=== PATIENT | male | born 1975 | race Caucasian/White ===

== ENCOUNTER 2019-04-25 11:02 | Emergency (ER) | payer OTHER, SELFPAY ==
[2019-04-25 11:05] VITALS: BP 127/78; PULSE 113; RESP 18; TEMP 36.9; O2SAT 96
--- NOTE | 2019-04-25 11:54 | DI.RAD_ITS ---
EXAM: XR HAND RT COMPLETE INDICATION: fall, injury. COMPARISON: XR WRIST RT COMPLETE from 04/25/2019 XR ELBOW RT COMPLETE from 04/25/2019 XR FOREARM RT from 04/25/2019 TECHNIQUE: 2D digital imaging was performed. FINDINGS: Views of the right hand the right wrist forearm and the elbow are interpreted in conjunction. Three views of the hand were obtained and show no evidence of fracture. Three views of the wrist were obtained and show no evidence of fracture. Two views of the forearm were obtained and show no evidence of fracture Three views of the elbow were obtained. No evidence of fracture. No elbow joint effusion or hemarth rosis. IMPRESSION:
--- NOTE | 2019-04-25 16:22 | ED.GENADUL_ITS ---
Discharge Plan Disposition Patient Disposition: HOME Condition: Good Discharge Details Chief Complaint: Orthopedic Clinical Impression: Elbow contusion, Sprain Primary Care Provider: Milan Coelho ED Provider: Steph Jackson Home Meds and New Rx's Prescriptions: No Action multivitamin Tablet 1 tab PO DIRECTED RF: 0 vitamin B complex Tablet 1 tab PO DAILY RF: 0 cholecalciferol (vitamin D3) [Vitamin D3] 400 unit Capsule 400 unit PO DAILY RF: 0 Discharge Instructions Instructions: Contusion in Adults (ED) Additional Instructions: Rest. Activities as tolerated. Elevate injury to prevent swelling. Ice to the area of discomfort for 15 min. 3-5 times daily. Motrin every 8 hours with food or Tylenol every 6 hours for soreness if needed over the counter for comfort. Followup with orthopedic doctor as discussed if not improving in one week. Return for any worsening or concerns sooner if needed. Referrals: Andi Go MD [ [facility] STAFF PHYSICIAN] - Medical Decision Making 43-year-old man who at work fell on the back of a tractor trailer truck landing on his right arm. Patient ultimately has x-rays unremarkable for any acute bony fracture. Patient likely has soft tissue injuries without any evidence of complication such as his head chest or abdominal trauma. Patient ambulating without difficulty. Patient consents to a wrist splint and sling. Conservative treatments discussed. Encouraged observation for any alarming symptoms. The patient was stable and requested discharge. Prior to discharge, my usual and customary return precautions were reviewed with the patient - this included foll ow-up instructions and reasons to return to the Emergency Department if conditions worsens, does not improve as expected, or other new concerns arise. Orthopedic follow-up recommended if not improving as expected HPI General Date/Time Provider Initiated Documentation: 04/25/19 11:42 . HPI Narrative: Patient presents for a fall out of the back of a tractor trailer truck onto his right side. Denies striking head. Denies loss of consciousness, headache, dizziness neck or back pain. Patient reports only elbow, forearm, wrist and hand pain on the right in addition to right leg abrasion. Patient ambulating without difficulty. No concern to lower leg fracture. Patient is only co ncerned with the right arm complaints. No obvious deformity. Mild swelling at the wrist. Denies numbness, tingling or weakness of arms or legs. Injury occurred yesterday at work. Related Data Home Medications Medication Instructions Recorded Confirmed cholecalciferol (vitamin D3) 400 unit PO DAILY 04/25/19 04/25/19 [Vitamin D3] multivitamin 1 tab PO DIRECTED 04/25/19 04/25/19 vitamin B complex 1 tab PO DAILY 04/25/19 04/25/19 Allergies Allergy/AdvReac Type Severity Reaction Status Date / Time Fleas Allergy Intermediate Local Uncoded 04/25/19 11:11 reaction General Stated Complaint: Orthopedic PAMELA: 4 Review of Systems Review of Systems ROS Unobtainable: All systems reviewed & are unremarkable except as noted in HPI and below Constitutional Constitutional: Denies headache(s) and Denies weakness Eyes Eyes: Denies blurry vision and Denies photophobia ENT Ears, Nose, Mouth, and Throat: Denies headache(s) and Denies neck pain Musculoskeletal Musculoskeletal: Denies abnormal gait, Denies back pain, Denies deformity, Denies neck pain and Denies numbness Neurologic Neurologic: Denies abnormal gait, Denies headache(s), Denies numbness and Denies weakness [facility] Social History Smoking/Tobacco Use Status: Current every day Alcohol Intake: former Drug use: Current Sobriety Do you feel safe at home: Yes Do you feel safe in your relationship?: Yes Exam Narrative Exam Narrative: CONST: Healthy appearing patient, in no acute distress. Well hydrated. Alert and alert. HENMT: Head nomocephalic, normal to inspection. Atraumatic. Hearing grossly normal. EYES: General normal appearance. Alignment normal. Eyelids normal. Conjunctiva normal. NECK: Normal visual inspection. FROM. Trachea midline. No Midline tenderness. CHEST: Normal insepection of the chest. RESP: Normal respiratory effort. Speaking full sentences. No cough. No audible wheezing. No retractions. CARDIO: No JVD. No rubs or murmur Back; no cervical, thoracic or lumbar spine tenderness. MUSCULOSKELETAL: Normal Gait. FROM of all extremities. No shoulder pain with palpation, humeral pain with palpation. Mild medial epicondyle tenderness with palpation. Supination pronation intact at the elbow. Flexion extension intact to the elbow. Mild forearm tenderness with palpation. Minimal wrist tenderness with palpation. Flexion extension intact of the wrist. Mild dorsal hand and palmar hand pain with palpation. No significant swelling. Distal neurovascularly intact. Director Of Coding strength intact. Pulses intact. SKIN: Normal. Dry. No rashes. NEURO: Alert and awake. Speech clear. PSYCH: Normal affect. Cooperative. Course Vital Signs Vital signs: Vital Signs Temperature 36.9 C 04/25/19 11:05 Pulse 113 H 04/25/19 11:05 Respiratory Rate 18 04/25/19 11:05 Blood Pressure 127/78 04/25/19 11:05 Pulse Oximetry 96 04/25/19 11:05 Temperature 36.9 C 04/25/19 11:05 Temperature Source Skin 04/25/19 11:05 Pulse 113 H 04/25/19 11:05 Respiratory Rate 18 04/25/19 11:05 Respiratory Effort 04/25/19 11:12 Blood Pressure 127/78 04/25/19 11:05 Blood Pressure Position Sitting 04/25/19 11:05 Pulse Oximetry 96 04/25/19 11:05 Oxygen Delivery Method Room Air 04/25/19 11:05 Oxygen Flow Rate 0 04/25/19 11:05 Pain Level 9 04/25/19 11:05 Comment 04/25/19 11:05
== END 2019-04-25 15:00 | disposition home or self-care (01) ==
PROVIDERS: Emergency Provider Physician Assistant; PCP Family Medicine
DX: S50.01XA Contusion of right elbow, initial encounter (principal); W17.89XA Other fall from one level to another, initial encounter; Y99.0 Civilian activity done for income or pay
CPT/HCPCS: 99284; 73080; 73090; 73110; 73130; L3650; L3908

== ENCOUNTER 2019-07-18 17:56 | Emergency (ER) | payer OTHER, SELFPAY ==
[2019-07-18 18:00] VITALS: BP 137/83; PULSE 98; RESP 14; TEMP 36.3; O2SAT 98
--- NOTE | 2019-07-18 18:15 | W.ED.GENAD ---
Discharge Plan Disposition Patient Disposition: HOME Condition: Stable Discharge Details Chief Complaint: HeadInjury Clinical Impression: Eye laceration Primary Care Provider: Milan Coelho ED Provider: Andi Mooney Home Meds and New Rx's Prescriptions: Continued multivitamin Tablet 1 tab PO DIRECTED RF: 0 vitamin B complex Tablet 1 tab PO DAILY RF: 0 cholecalciferol (vitamin D3) [Vitamin D3] 400 unit Capsule 400 unit PO DAILY RF: 0 Discharge Instructions Instructions: Laceration (ED) Additional Instructions: No straining or lifting heavy objects. May use Tylenol 650 mg every 4 hours if needed for pain. Nothing to eat or drink after midnight until seen by the documentation manager at 8am. Wear the eye guard until seen by ophthalmology tomorrow. I discussed your case with Dr. Pierre of [facility] ophthalmology department. They will see you at 8 AM in clinic on [address] of the [facility] in [facility]. The [facility] main number [phone]. Call if you are delayed in arrival. Stand Alone Forms: Work Release Medical Decision Making 43-year-old male who drank coffee, coughed and sputtered and went out the front door of his trailer, landing on his face on the snow-covered deck. He did not strike a corner or other object. He complains of right eye bleeding. No significant discomfort. Denies loss of consciousness., Denies chest pain, syncope, shortness of breath. States his tetanus is unknown, checked in the records and out of date. He arrives with normal vital signs. On exam his visual acuity is intact bilaterally. Most consistent with a mechanical trip and fall during a coughing fit, however screening EKG, laboratories obtained. Patient referred for CT scan of the head, cervical spine, facial bones. EKG with normal sinus rhythm, rate of 93, QRS is narrow, there is no ST segment elevation present. Per radiology: CT of the head reveals no acute intracranial abnormality, CT maxillofacial reveals right supraorbital laceration without foreign body, no bone fracture. CT cervical spine without fracture or dislocation. Laboratories: White count 8.8, hematocrit 48, platelets 148, sodium 142, potassium 4.0, chloride 104, bicarb 25, BUN 18, creatinine 0.9. I discussed the case with Lisa Pierre MD of [facility] ophthalmology. She will see the patient in clinic tomorrow. We are to administer a dose of IV Ancef, the patient's tetanus has been updated, the images have been referred. They will see the patient at 8 AM in ophthalmology clinic on [address]. He is to be n.p.o. after midnight. HPI General Mode of arrival: ambulatory. Date/Time Provider Initiated Documentation: 07/18/19 17:58. Limitations to Documentation: no limitations. Information obtained by: patient and family. History of Present Illness 43 year old M presents to the emergency department with the chief complaint of Fall and right face trauma, Quality is described as dull, and is localized to the face, eyes and right. Patient reports no radiation. Patient started experiencing this minute(s) and it has been constant. No relieving factors improve symptom(s), No exacerbating factors reported . Patient notes denies chest pain, fever/chills, seizure, shortness of breath and syncope. Patient did receive the following treatments prior to arrival, none Related Data Home Medications Medication Instructions Recorded Confirmed cholecalciferol (vitamin D3) 400 unit PO DAILY 04/25/19 07/18/19 [Vitamin D3] multivitamin 1 tab PO DIRECTED 04/25/19 07/18/19 vitamin B complex 1 tab PO DAILY 04/25/19 07/18/19 Allergies Allergy/AdvReac Type Severity Reaction Status Date / Time Fleas Allergy Intermediate Local Uncoded 07/18/19 18:03 reaction General Stated Complaint: HeadInjury PAMELA: 3 Review of Systems Narrative: Tetanus out of date. Denies other injury. Small abrasion to bridge of nose. [facility] Social History Smoking/Tobacco Use Status: Current every day Alcohol Intake: former Drug use: Current Sobriety Substance use type: does not use Do you feel safe at home: Yes Do you feel safe in your relationship?: Yes Exam Narrative Exam Narrative: GEN: awake, alert, oriented 3. Pleasant, well groomed, interactive. HEAD: Normocephalic, atraumatic ENT: Mucous membranes moist, oropharynx unremarkable, External ear exam unremarkable. TMs clear bilaterally with cerumen. There is no midface instability or anesthesia. There is a small abrasion to the bridge of the nose but no nasal bridge tenderness. EYES: PERRL, EOMI, visual lorenzana intact in 4 quadrants each eye. Visual acuity measured 20/100 OS/OD/OU. There is a right eye injury: A nasal aspect inferior oblique oriented scleral laceration measuring approximate 9-10 mm. Under fluorescein exam there is no Payam sign. Outside the axis of vision. Claudio-Pen nonfunctional. The laceration is there is sub-conjunctival hemorrhage. The pupils round and reactive, do not appreciate hyphema. The orbits are nontender. NECK: Full ROM, no ADRIANA, no menigismus CHEST/RESP: Nontender, clear to auscultation bilateral, no wheeze/rhonchi/rales CARDIOVASCULAR: RRR, no murmur, rub farooq. 2+ Rad pulse bilateral ABDOMEN: Soft, nontender, no mass. +Bowel sounds EXT: Full ROM, no edema, no rash Neuro: Grossly normal neurologic exam, conversant, interactive. Psych: Speech fluent, thoughts congruent, affect normal Course Vital Signs Vital signs: Vital Signs Temperature 36.3 C L 07/18/19 18:00 Pulse 98 H 07/18/19 18:00 Respiratory Rate 14 07/18/19 18:00 Blood Pressure 137/83 07/18/19 18:00 Pulse Oximetry 98 07/18/19 18:00 Temperature 36.3 C L 07/18/19 18:00 Temperature Source Temporal Artery Scan 07/18/19 18:00 Pulse 98 H 07/18/19 18:00 Respiratory Rate 14 07/18/19 18:00 Respiratory Effort Non-Labored 07/18/19 18:02 Blood Pressure 137/83 07/18/19 18:00 Blood Pressure Position Sitting 07/18/19 18:00 Pulse Oximetry 98 07/18/19 18:00 Oxygen Delivery Method Room Air 07/18/19 18:00 Oxygen Flow Rate 0 07/18/19 18:00 Pain Level 0 07/18/19 18:00
--- NOTE | 2019-07-18 18:24 | DI.CT_ITS ---
EXAM: CT HEAD CERV SPINE FACIAL WO CLINICAL HISTORY: Fall, R eye injury TECHNIQUE: The exam was performed according to the usual protocol without contrast. COMPARISON: No exams were available for comparison FINDINGS: CT examination of the maxillofacial region was performed utilizing multi slice acquisition and multip lanar reconstruction. Paranasal sinuses are well aerated. Orbital contents appear intact. No facia l fracture identified. CT examination of the cervical spine was performed utilizing multi slice acquisition and multiplanar reconstruction. Tracheolaryngeal structures appear intact. Lung apices are clear. No gross cervica l disc herniation by CT criteria. No cervical mass or adenopathy. There are degenerative changes of the cervical spine, most prominent at C6-C7 where there is marked d isc space loss of height, prominent endplate hypertrophic changes, and bridging osteophytes anteriorl y. There is no evidence of acute fracture. There is no evidence of facet dislocation. Noncontrast cranial CT was performed. Ventricular system is normal in appearance. No evidence of ac dwain intracranial hemorrhage, mass effect or midline shift. Temporal bone structures and mastoid air cells appear clear. No calvarial fracture. IMPRESSION: No evidence of acute maxillofacial fracture. No evidence of acute cervical spine injury. No evidence of acute intracranial injury.
[2019-07-18] MEDS: Erythromycin Ophth Oint 3.5 GM TUBE OP (18:37)
[2019-07-18] MEDS: Fluorescein STRIPS 100/BOX 1 MG OP (18:37)
[2019-07-18] MEDS: Balanced Salt Solution 15 ML BTL OP (18:37)
--- NOTE | 2019-07-18 18:57 | DI.VRAD_ITS ---
PROCEDURE INFORMATION: Exam: CT Head Without Contrast Exam date and time: 07/18/2019 6:14 PM Age: 43 years old Clinical indication: Injury or trauma; Initial encounter; Blunt trauma (contusions or hematomas); Orbit/periorbital; Right; Patient HX: Fall, R eye injury TECHNIQUE: Imaging protocol: Computed tomography of the head without contrast. COMPARISON: No relevant prior studies available. FINDINGS: Brain: Normal. No hemorrhage. Unremarkable white matter. No mass effect. Ventricles: Normal. No ventriculomegaly. Bones/joints: Unremarkable. No acute fracture. Sinuses: Visualized sinuses are unremarkable. No fluid levels. Mastoid air cells: Visualized mastoid air cells are well aerated. Soft tissues: Unremarkable. IMPRESSION: No acute intracranial abnormality. Soft PROCEDURE INFORMATION: Exam: CT Maxillofacial Without Contrast Exam date and time: 07/18/2019 6:14 PM Age: 43 years old Clinical indication: Injury or trauma; Initial encounter; Blunt trauma (contusions or hematomas); Orbit/periorbital; Right; Patient HX: Fall, R eye injury TECHNIQUE: Imaging protocol: Computed tomography images of the face without contrast. COMPARISON: No relevant prior studies available. FINDINGS: Orbits: Intraorbital contents are unremarkable. Sinuses: Paranasal sinuses are uniformly clear. Bones/joints: No facial bone fracture. Soft tissues: Small laceration in the right periorbital soft tissues. No foreign body visible. IMPRESSION: 1. Right supraorbital small laceration without foreign body. 2. No facial bone fracture. PROCEDURE INFORMATION: Exam: CT Cervical Spine Without Contrast Exam date and time: 07/18/2019 6:14 PM Age: 43 years old Clinical indication: Injury or trauma; Initial encounter; Blunt trauma (contusions or hematomas); Orbit/periorbital; Right; Patient HX: Fall, R eye injury TECHNIQUE: Imaging protocol: Computed tomography images of the cervical spine without contrast. COMPARISON: No relevant prior studies available. FINDINGS: Vertebrae: No suspicious focal bony lesions. No fractures. No posttraumatic malalignment. Discs/Spinal canal/Neural foramina: Severe degenerative disc disease at C6-C7. Soft tissues: Unremarkable. Lungs: Lung apices are normal. IMPRESSION: 1. No cervical spine fracture or dislocation. 2. Degenerative disc disease severe in nature C6-C7. Dictated and Authenticated by: Harpal Delacruz MD. Ordering:EMMANUEL Escamilla MD
[2019-07-18 19:00] LABS: Abs Immature Grans 0.04 k/cumm (0.0-0.09); Absolute Basophil Count 0.03 k/cumm (0.0-0.2); Absolute Eosinophil Count 0.14 k/cumm (0.0-0.7); Absolute Monocyte Count 0.73 k/cumm (0.11-0.7); Absolute Neutrophil Count 4.71 k/cumm (1.2-6.7); Basophils % 0.3; Eosinophils % 1.6; HGB 17.1 g/dL (13.5-17.5); Immature Grans % 0.5; Lymphocytes % 36.2; Mean Corp. HGB Concentration 35.6 g/dL (32.0-36.0); Mean Corpuscular Hemoglobin 33.6 pg (27.0-33.0); Mean Corpuscular Volume 94.3 fL (80-95); Mean Platelet Volume 9.9 fL (8.0-11.0); Monocytes % 8.2; Neutrophils % 53.2; Platelet Count 148 x1000/uL (130-400); RBC 5.09 m/cumm (4.50-6.00); RBC Distribution Width 12.6 % (11.8-14.1); White Blood Cell Count 8.85 k/cumm (4.4-10.8)
[2019-07-18 19:14] LABS: Albumin 3.7 g/dL (3.4-5.0); Alkaline Phosphatase 84 U/L (46-116); BUN 18 mg/dL (7-18); Bilirubin, Total 0.3 mg/dL (0.2-1.0); CREATININE 0.98 mg/dL (0.70-1.30); Calcium 8.4 mg/dL (8.5-10.1); Chloride 104 mmol/L (98-107); Glucose 127 mg/dL (74-106); Sodium 142 mmol/L (136-145)
[2019-07-18 20:21] VITALS: BP 130/82; PULSE 80; RESP 14; TEMP 37; O2SAT 97
[2019-07-18 20:38] LABS: ALT 41 U/L (16-63); AST 25 U/L (15-37)
== END 2019-07-18 20:05 | disposition home or self-care (01) ==
PROVIDERS: Emergency Provider Emergency Medicine; PCP Family Medicine
DX: S01.81XA Laceration without foreign body of other part of head, initial encounter (principal); W18.30XA Fall on same level, unspecified, initial encounter; Z23 Encounter for immunization
CPT/HCPCS: 80053; 90471; 93005; 96365; 99285; 70450; 70486; 72125; 85025; 93010; 99284; J0690

== ENCOUNTER 2023-01-26 07:33 | Emergency (ER) | payer OTHER, SELFPAY ==
[2023-01-26 07:36] VITALS: BP 134/90; PULSE 74; RESP 18; TEMP 36.8; O2SAT 98
--- NOTE | 2023-01-26 08:14 | ED.GENADUL_ITS ---
Discharge Plan Disposition Patient Disposition: Home Discharge Details Clinical Impression: Back pain due to injury Primary Care Provider: None,None ED Provider: Margot Steven Home Meds and New Rx's Prescriptions: New lidocaine 5 % adhesive patch,medicated 2 patch topical DAILY Qty: 30 0RF Rx Instructions: leave on most painful area for up to 12 hrs lorazepam 1 mg tablet 1 mg PO Q8H PRN (Reason: muscle spasm) Qty: 1 0RF lorazepam 1 mg tablet 1 mg PO TID PRNQty: 7 0RF Discharge Instructions Instructions: Back Pain (ED) Additional Instructions: Call your primary care physician today to schedule an appointment within one week to follow up on your visit here. Take tyelnol and ibuprofen over the counter for pain- follow the directions on the bottle. Stand Alone Forms: Work Release Medical Decision Making 47yo M with acute low back pain, onset while lifting trailer gate yesterday. Improved over the course of the day yesterday then recurred this morning while bending to lift toilet seat. No neurological symptoms, not concerned for cord compression/cauda equina. Would not pursue further with imaging/MRI. Vital signs and physical exam reassuring, normal neurologic exam of lower extremities. Will treat symptomatically with IM toradol, PO flexeril/tyelnol, and lidocaine patch. On reassessment pain has improved and patient able to stand, but still significant 7/10. Given PO ativan 1mg with improvement in symptoms, able to ambulate easily on reassessment. Advised tylenol/ibuprofen, prescribed PO lorazepam and lidocaine patches, advised PCP followup. Discharged home; discharge instructions including return precautions were reviewed with patient who verbalized understanding. All questions were answered and they are in full agreement with the plan. HPI General Mode of arrival: ambulatory . Date/Time Provider Initiated Documentation: 01/26/23 08:02 . Limitations to Documentation: no limitations . Information obtained by: patient and family . HPI Narrative: 47yo M presenting with acute low back pain. Onset yesterday while lifting gate of trailer; felt a pop and then severe band like pain across his lower back. Symptoms improved over the course of the day; felt well when he woke this morning. When lower toilet seat again suddenly felt severe pain in his lower back. Has occasionally had similar symptoms in the past which improved with h ome OTC meds and head packs; today this did not help and he has difficultly walking 2/t pain. No numbness, tingling, muscle weakness, or bowel/bladder issues. He is otherwise in his usual state of health with no fevers, chills, rash, nausea, vomiting, abdominal pain, chest pain, shortness of breath, or other concerns. Related Data Home Medications Medication Instructions Recorded Confirmed lidocaine 5 % topical patch 2 patch topical DAILY #30 ea 01/26/23 lorazepam 1 mg tablet 1 mg PO Q8H PRN muscle spasm #1 tab 01/26/23 lorazepam 1 mg tablet 1 mg PO TID PRN #7 tabs 01/26/23 Previous Rx's Medication Instructions Recorded lidocaine 5 % topical patch 2 patch topical DAILY #30 ea 01/26/23 lorazepam 1 mg tablet 1 mg PO Q8H PRN muscle spasm #1 tab 01/26/23 lorazepam 1 mg tablet 1 mg PO TID PRN #7 tabs 01/26/23 Allergies Allergy/AdvReac Type Severity Reaction Status Date / Time Fleas Allergy Intermediate Local Uncoded 01/26/23 07:39 reaction General Stated Complaint: Nk/Back Pain PAMELA: 3 Review of Systems Narrative: see HPI PFSH All Active Problems (Updated 01/26/23 @ 11:07 by Margot Steven MD) Back pain due to injury (Acute) Social History Smoking/Tobacco Use Status: Current every day Smoking risk assessment performed?: Yes Alcohol Intake: former Drug use: Current Sobriety Substance use type: does not use Do you feel safe at home: Yes Do you feel safe in your relationship?: Yes Exam Narrative Exam Narrative: General: Alert, well appearing, well nourished, appears moderately uncomfortable. Head: Normocephalic, atraumatic Neck: Trachea midline, ?Neck supple. Back: Low lumbar and sacral tenderness including both midline and paraspinal bilaterally. Cardiac: ?RRR, no murmurs appreciated Resp: No respiratory distress. CTAB. Abd: ?Soft, non-distended, nontender : ?No suprapubic tenderness. . Extremities: ?No deformities.? No peripheral edema. Neurologic: GCS 15. ? Moves all extremities freely against gravity. Sensation intact to light touch and symmetric bialteral LE. Course Vital Signs Vital signs: Vital Signs Temperature 36.8 C 01/26/23 07:36 Pulse 74 01/26/23 07:36 Respiratory Rate 18 01/26/23 07:36 Blood Pressure 134/90 01/26/23 07:36 Pulse Oximetry 98 01/26/23 07:36 Temperature 36.8 C 01/26/23 07:36 Temperature Source Skin 01/26/23 07:36 Pulse 74 01/26/23 07:36 Respiratory Rate 18 01/26/23 07:36 Respiratory Effort Normal 01/26/23 07:39 Blood Pressure 134/90 01/26/23 07:36 Blood Pressure Position Sitting 01/26/23 07:36 Pulse Oximetry 98 01/26/23 07:36 Oxygen Delivery Method Room Air 01/26/23 07:36 Oxygen Flow Rate 0 01/26/23 07:36 Pain Level 9 01/26/23 07:36
[2023-01-26] MEDS: Acetaminophen 500 MG TAB 1000 MG PO (08:34)
[2023-01-26] MEDS: Lidocaine 5% Patch 2 PATCH TP (08:34)
[2023-01-26] MEDS: Ketorolac 15 MG/ML VIAL IM (08:34)
[2023-01-26] MEDS: Cyclobenzaprine 10 MG TAB PO (08:34)
[2023-01-26 09:35] VITALS: BP 112/75; PULSE 65; TEMP 36.4; O2SAT 96
[2023-01-26] MEDS: LORazepam 1 MG TAB PO (10:14)
== END 2023-01-26 11:14 | disposition home or self-care (01) ==
PROVIDERS: Emergency Provider Student in an Organized Health Care Education/Training Program
DX: M54.9 Dorsalgia, unspecified (principal)
CPT/HCPCS: 96372; 99284; J1885

== ENCOUNTER → 2023-08-04 13:04 | Outpatient (CLI) | payer OTHER, SELFPAY ==
--- NOTE | 2023-08-04 12:15 | DI.RAD_ITS ---
Exam(s) XR THORACIC SPINE COMPLETE EXAM: XR THORACIC SPINE COMPLETE CLINICAL HISTORY: evaluate pathology, PARESTHESIA, R20.2. TECHNIQUE: 2D digital imaging was performed. Three views. COMPARISON: CR XR CERVICAL SPINE COMP 4-5V from 08/04/2023 FINDINGS: Exam limited by under penetration and motion. BONES: There is no compression fracture. ALIGNMENT: Within normal limits. DISKS: Mild narrowing the anterior disc spaces in the upper thoracic region. SOFT TISSUE: Visualized lungs are clear. IMPRESSION: Limited exam due to underpenetration. Minimal degenerative changes. DATA REPOSITORY: RADIATION DOSE DELIVERED:
--- NOTE | 2023-08-04 12:15 | DI.RAD_ITS ---
Exam(s) XR CERVICAL SPINE COMP 4-5V EXAM: XR CERVICAL SPINE COMP 4-5V CLINICAL HISTORY: evaluate pathology, PARESTHESIA, R20.2. TECHNIQUE: 2D digital imaging was performed. Five views were performed. COMPARISON: No exams were available for comparison FINDINGS: BONES: No fracture or destructive lesion. Vertebral bodies are unremarkable. DISKS: Moderate narrowing of the C3-4 disc space. Small endplate osteophytes. Severe narrowing of t he C6-7 disc space with broad-based osteophytes. Facet degenerative changes are mild throughout. No left neural foraminal narrowing. Right neural foramen are suboptimally profiled. ALIGNMENT: Cervical spinal alignment is within normal limits. The odontoid and atlantoaxial articulat ions are normal. SOFT TISSUE: Normal. The lung apices are clear. IMPRESSION: Degenerative disc changes greatest at C3-4 and C6-7. DATA REPOSITORY: RADIATION DOSE DELIVERED:
== END ==
PROVIDERS: Visit Provider Nurse Practitioner Family
DX: R20.2 Paresthesia of skin (principal); M50.022 Cervical disc disorder at C5-C6 level with myelopathy
CPT/HCPCS: 72050; 72072

== ENCOUNTER 2023-09-10 18:58 | Outpatient (REF) | payer OTHER, SELFPAY ==
[2023-09-10 14:05] LABS: Calculated LDL 116 mg/dL (<100); Cholesterol 192 mg/dL (<200); HDL Cholesterol 32 mg/dL (40-60); Triglyceride 221 mg/dL (<150)
[2023-09-10 14:14] LABS: Hemoglobin A1C 5.5 % (<5.7)
== END 2023-09-10 18:59 | disposition home or self-care (01) ==
LOC: LBN 18:58
PROVIDERS: PCP Nurse Practitioner Family; Referring Provider Nurse Practitioner Family; Visit Provider Nurse Practitioner Family
DX: Z13.220 Encounter for screening for lipoid disorders (principal); Z13.1 Encounter for screening for diabetes mellitus
CPT/HCPCS: 80061; 83036

== ENCOUNTER 2024-01-13 09:34 | Day surgery (SDC) | payer OTHER, SELFPAY ==
[2024-01-13 10:00] VITALS: BP 131/83; PULSE 77; RESP 16; TEMP 36.4; O2SAT 96
[2024-01-13] MEDS: Lactated Ringers 1,000 ML 80 ML IV (10:20)
[2024-01-13] MEDS: Acetaminophen 500 MG TAB 1000 MG PO (10:27)
[2024-01-13] MEDS: Celecoxib 200 MG CAP 400 MG PO (10:27)
--- NOTE | 2024-01-13 10:41 | W.PREOPHP ---
Assessment and Plan Assessment and plan (1) Bilateral carpal tunnel syndrome: Status: Acute Assessment and plan: Right ECTR followed by a left ECTR at a later date. History of Present Illness History of Present Illness Chief Complaint: Bilateral hand pain/numbness, right worse than left Narrative: Flavio is a 48-year-old male who comes in today for a right ECTR. He has bilateral carpal tunnel syndrome which bothers him on a daily basis and has been persistent for quite some time. Nerve conduction studies have confirmed bilateral carpal tunnel syndrome, right worse than left. After discussion with Dr. Cardona in the office, he elects to move forward with surgical release of the right wrist due to daily limitations and persistent symptoms in his hands, again right worse than left. Review of Systems Constitutional Constitutional: Denies fever(s) ENT Ears, Nose, Mouth, and Throat: Denies dizziness and Denies sore throat Cardiovascular Cardiovascular: Denies chest pain, Denies palpitations and Denies dyspnea Respiratory Respiratory: Denies cough and Denies dyspnea Gastrointestinal Gastrointestinal: Denies abdominal pain, Denies melena, Denies hematochezia, Denies diarrhea, Denies nausea and Denies vomiting Genitourinary Genitourinary: Denies hematuria and Denies dysuria Neurologic Neurologic: Denies dizziness Endocrine Endocrine: Denies palpitations PFSH All Active Problems Bilateral carpal tunnel syndrome (Acute) S/P R ECTR: 01/13/2024 Obesity (BMI 30-39.9) (Acute) Smoker (Acute) 1 pack/day for 30+ years. Surgical History Hx of eye surgery H/O right wrist surgery Family History Mother Alcohol use disorder Dementia Diabetes Hyperlipidemia Hypertension Father Alcohol use disorder Dementia Hyperlipidemia Hypertension Brother No problems noted. Social History Smoking/Tobacco Use Status: Current every day Tobacco Type: cigarettes Tobacco: How many years used: 38 Quit status: considering quitting Second Hand Exposure: Yes Smoking risk assessment performed?: Yes Alcohol Intake: former Year quit: 2011 Previous attempts at quittin Drug use: Current Sobriety Substance use type: former substance user Adopted: No Caregiver/Support person: No Foster care: No Household members: spouse Housing: house Number of Children: 2 number of grandchildren: 5 Communication Needs: None Education Level: high school Do you need help understanding health information?: Rarely current occupation: assembler truck trailer Sexually active: Yes Do you think of yourself as: straight/heterosexual Current gender identity: male What is your relationship status?: How often do you talk on the phone with friends or family?: decline to answer How often do you get together with friends or relatives?: decline to answer How often do you attend christianity or worship services?: decline to answer Do you belong to any clubs or organized social groups?: no Panel score (0-1 are the most socially isolated patients): 1 What type of physical activity do you participate in: decline to answer Duration: decline to answer Frequency: decline to answer Belle/Quaker: None Seatbelt use: sometimes Helmet use: Yes Helmet use: sometimes Drive intox or ride w/intox food mobile driver: No Firearms in home: Yes Firearms unloaded and locked: Yes Do you feel safe at home: Yes Do you feel safe in your relationship?: Yes Victim of physical abuse: No Victim of emotional abuse: No Victim of sexual abuse: No Meds Allergies and Home Medications Allergies Allergy/AdvReac Type Severity Reaction Status Date / Time No Known Allergies Allergy Verified 01/13/24 10:06 Home Medications Medication Instructions Recorded Confirmed Type acetaminophen 500 mg tablet 1,000 mg (2 x 500 mg) PO TID #90 01/13/24 Rx tabs hydrocodone 5 mg-acetaminophen 325 1 tab PO Q6H PRN pain #4 tabs 01/13/24 Rx mg tablet ibuprofen 600 mg tablet 600 mg PO TID PRN pain #90 tabs 01/13/24 Rx Exam Const General: cooperative, healthy appearing and no acute distress Orientation: alert and awake [facility] Head: normocephalic and atraumatic General nose exam: no nasal discharge Eyes Conjunctivae: conjunctivae normal Sclera: sclerae normal Resp Effort & Inspection: normal respiratory effort Auscultation: clear to auscultation bilaterally and no wheezes Cardio Rate: regular rate Rhythm: regular rhythm Heart Sounds: S1 normal, S2 normal and no murmurs Results Last Vital Signs Temp 97.5 F L 01/13/24 10:00 Pulse 77 01/13/24 10:00 Resp 16 01/13/24 10:00 BP 131/83 01/13/24 10:00 Pulse Ox 96 01/13/24 10:00
--- NOTE | 2024-01-13 10:46 | PDOC.DSDIS_ITS ---
Date of service: 01/13/24 Time of Service: 10:46 Discharge Plan Disposition Patient Disposition: Home Condition: Good Discharge Details Reason For Visit: R ECTR Attending Provider: Roshan Cardona Primary Care Provider: Deric Bella Home Meds and New Rx's Prescriptions: New acetaminophen 500 mg tablet 1,000 mg PO TID Qty: 90 0RF hydrocodone-acetaminophen 5-325 mg tablet 1 tab PO Q6H PRN (Reason: pain) Qty: 4 0RF ibuprofen 600 mg tablet 600 mg PO TID PRN (Reason: pain) Qty: 90 0RF Discharge Instructions Stand Alone Forms: Anesthesia Discharge Inst., Brendan Felder Tunnel Release, Bernadette Zhou ([facility]) Referrals: Roshan Cardona MD [ [facility] STAFF PHYSICIAN] - Activity:: Activity as Tolerated Remove Dressings/Wound Care:: 48 hours Shower/Bathe:: 48 hours Diet:: As Tolerated Discharge Orders Discharge Orders: Discharge Order (Routine); Ordered 01/13/24 Ordered By: Yared Pearce DS: Diagnosis Discharge Diagnosis (1) Bilateral carpal tunnel syndrome: Status: Acute
--- NOTE | 2024-01-13 11:29 | W.ANESPRE ---
General Info Date of Service Date Performed: 01/13/24 Height: 5 ft 11 in Weight: 124.1 kg Body Mass Index (BMI): 38.1 Surgical Procedure: Operation Date: 01/13/24 11:55 Proposed Procedure Side Surgeon p Wrist ECTR Right Roshan Cardona MD Meds Allergies and Home Medications Allergies Allergy/AdvReac Type Severity Reaction Status Date / Time No Known Allergies Allergy Verified 01/13/24 10:06 Home Medication Medication Instructions Recorded acetaminophen 500 mg tablet 1,000 mg (2 x 500 mg) PO TID #90 01/13/24 tabs hydrocodone 5 mg-acetaminophen 325 1 tab PO Q6H PRN pain #4 tabs 01/13/24 mg tablet ibuprofen 600 mg tablet 600 mg PO TID PRN pain #90 tabs 01/13/24 Current Visit Medications: Current Medications Generic Name Dose Route Start Last Admin Trade Name Freq PRN Reason Stop Dose Admin Acetaminophen 1,000 mg 01/13/24 06:00 01/13/24 10:27 Acetaminophen 500 Mg Tab PO 02/11/24 23:59 1,000 mg PREOP JULISA Administration Acetaminophen 650 mg 01/13/24 14:00 Acetaminophen 325 Mg Tab PO 02/12/24 13:59 Q4H PRN PRN Hydrocodone Bitart/Acetaminophen 0 tab 01/13/24 10:45 Hydrocodone 5/Acetaminophen 325 Tab PO 02/12/24 10:44 Q3H PRN PRN Pain Celecoxib 400 mg 01/13/24 06:00 01/13/24 10:27 Celecoxib 200 Mg Cap PO 02/11/24 23:59 400 mg PREOP JULISA Administration Ringer's Solution 1,000 mls @ 80 mls/hr 01/13/24 06:00 01/13/24 10:20 IV 02/11/24 23:59 80 mls/hr INFUSION JULISA Administration Cefazolin Sodium/Dextrose 2 gm in 50 mls @ 100 mls/hr 01/13/24 06:00 Ancef Duplex IVPB 02/11/24 23:59 PREOP JULISA IV Miscellaneous Supplies 1 each 01/13/24 06:00 Iv Access IV 02/11/24 23:59 DIRECTED JULISA Sodium Chloride 0 ml 01/13/24 06:00 Normal Saline Flush 10 Ml Syr IV 02/11/24 23:59 PRN PRN Sodium Chloride 0 ml 01/13/24 06:00 Normal Saline 10 Ml Vial IJ 02/11/24 23:59 DIRECTED PRN Sterile Water 0 ml 01/13/24 06:00 Water,Injection,Sterile 10 Ml Vial IJ 02/11/24 23:59 DIRECTED PRN PFSH Active Problems Active Problems: Problem Status Onset Code Bilateral carpal tunnel syndrome G56.03 Obesity (BMI 30-39.9) E66.9 Smoker F17.200 Surgical History Surgical History Hx of eye surgery H/O right wrist surgery Tobacco Smoking/Tobacco Use Status: Current every day Tobacco Type: cigarettes Passive smoking exposure: Yes Second hand exposure: Yes Alcohol Alcohol Intake: former Year quit: 2011 Substance Use Substance use: Current Sobriety Substance use type: former substance user Vital Signs and Lab Results Vital Signs Most Recent Vital Signs in EMR: Most Recent Vital Signs Temp Pulse Resp BP Pulse Ox 36.4 C L 77 16 131/83 96 01/13/24 10:00 01/13/24 10:00 01/13/24 10:00 01/13/24 10:00 01/13/24 10:00 Lab Results Blood Type / Crossmatch: No Data to Display Complete Blood Count: No Data to Display Complete Metabolic Panel: No Data to Display Liver Function Panel: No Data to Display Coagulation Panel: No Data to Display Cardiac Panel: No Data to Display Arterial Blood Gas: No Data to Display Venous Blood Gas: No Data to Display Pancreas Panel: No Data to Display Thyroid Panel: No Data to Display Infectious Disease: No Data to Display Blood Cultures: No Data to Display Toxicology Panel: No Data to Display Anesthesia Assessment and Plan Anesthesia History Personal History: No History of Anesthesia Complications Family History: No Family History of Anesthesia Complications Exercise Tolerance Exercise Tolerance: Metabolic Equivalents>4 Pertinent Negatives Pertinent Negatives: No Symptoms of GERD, No Major Cardiovascular Symptoms or Complaints and No Major Pulmonary Symptoms or Complaints Cardiac & Pulmonary Exam Cardiac Exam: Normal S1/S2 Heart Sounds Pulmonary Exam: Clear Bilateral Breath Sounds Implantable Cardiac Device Does patient have a Pacemaker or an ICD?: No Airway Exam Known Difficult Airway: No Mallampati Class: 1 Mouth Opening: Normal (> 3cm) Thyromental Distance: Greater than 3 cm Neck Range of Motion: Full ROM Neck Circumference: Normal Teeth Condition: Generalized Poor Dentition ASA Classification ASA Score: ASA 2 Emergency Case?: No NPO Status NPO Status: NPO Clears >2 hours, Solids >8 hours Anesthesia Plan Resuscitation Status: Full Code Anesthesia Technique: General Anesthesia Airway Planned: Natural Airway Monitors Used: Standard Monitors
[2024-01-13 11:31] VITALS: BMI 38.1
[2024-01-13] MEDS: ceFAZolin 2 GM/50 ML BAG IVPB (12:03)
[2024-01-13] MEDS: Lidocaine 1% Pres-Free W/EPI 1/200,000 10 ML VIAL (12:12)
[2024-01-13 12:24] VITALS: BP 108/62; PULSE 84; RESP 16; TEMP 36.4; O2SAT 94
--- NOTE | 2024-01-13 12:31 | W.ANESPOSTOP ---
Postoperative Evaluation Date, Time and Location Date Performed: 01/13/24 Time Performed: 12:31 Patient Location: Day Surgery Unit Vital Signs Most Recent Imported Vital Signs: Most Recent Vital Signs Temp Pulse Resp BP Pulse Ox 36.4 C L 84 16 108/62 94 01/13/24 12:24 01/13/24 12:24 01/13/24 12:24 01/13/24 12:24 01/13/24 12:24 Pain Score Most Recent Pain Score: Most Recent Pain Score Pain Level 0 01/13/24 12:24 Assessment Mental Status: Arousable with meaningful communication Airway and Respiratory Function: Patent airway with normal (patient baseline) respiratory exam Cardiovascular Function: Hemodynamically Stable Hydration Status: Adequately Hydrated Nausea & Vomiting: No Nausea or Vomiting Pain: Pt. Denies Any Pain Peripheral Nerve Block: Patient did not receive a nerve block
[2024-01-13 12:54] VITALS: BP 120/70; PULSE 81; RESP 16; TEMP 36.5; O2SAT 96
--- NOTE | 2024-01-13 13:40 | W.PM.OP ---
Date of service: 01/13/24 Time of Service: 12:05 Operative Note Operative Note DATE OF PROCEDURE: 01/13/24 PRE-OP DIAGNOSIS: Right Carpal Tunnel Syndrome POST-OP DIAGNOSIS: same PROCEDURE: Right Endoscopic Carpal Tunnel Release SURGEON: Roshan Cardona ANESTHESIA TYPE: General:No Airway Refer to Anesthesia Record ESTIMATED BLOOD LOSS: 0 PATHOLOGY: none sent TOURNIQUET TIME: 5 COMPLICATIONS: None Patient was transported to: same day Patient's condition: stable Indications: I have seen Flavio in clinic for symptoms of carpal tunnel syndrome. The numbness, tingling, and pain limited function. Clinical exam findings with nerve conduction tests confirmed the diagnosis of carpal tunnel syndrome. Nonoperative measures such as bracing, time, activity modifications had been tried but disability and pain persisted. I discussed carpal tunnel release with the patient. I reviewed the risks of the procedure to include, but not limited to, bleeding, infection, pain, stiffness, incomplete release, damage to nerves or vessels, persistent numbness, recurrence. Despite these risks, the patient elected to proceed. Findings: There was tightened carpal tunnel. This was dilated and released successfully with the endoscopic with increased space within the tunnel. The antebrachial fascia was released proximally freeing the median nerve at the wrist. Procedure Description: Flavio was greeted in the preoperative holding area where the correct side was identified and marked. The consent was reviewed with the patient and signed. The history and physical was updated. All questions were answered. He was taken back to the operating room. The patient was placed into the supine position on the operating room table with the right arm on an arm board. A nonsterile tourniquet was placed high onto the arm. All bony prominences were well padded. Prophylactic antibiotics in the form of Cefazolin were administered. The right arm was then prepped with Chloraprep and draped in a standard fashion with stockinette and extremity drape. A timeout to confirm correct identity, side and site, procedure, allergies, anesthesia, and medical concerns was performed. The surgical site was marked in the volar wrist creases in line with the radial border of the fourth ray. This area was anesthetized with approximately 6cc of 1% Lidocaine. The limb was then exsanguinated with an Esmarch. The skin was incised with a 15 blade, approximately 1cm. The skin only was cut and the deeper tissue was dissected bluntly with a tenotomy scissor, avoiding passing nerve and venous structures. The fascia was penetrated and opened bluntly. A two-prong skin hook was placed under this proximal fascial edge. A series of hamate finders were used to identify and dilate the carpal tunnel. Synovial elevator was used to free synovial attachments to the underside of the transverse carpal ligament. My thumb was kept in the palm to logan the distal extent of the carpal tunnel and correctly position the hand. The Microaire endoscope was inserted without difficulty and without resistance. Excellent visualization showed horizontally running fibers of the transverse carpal ligament (TCL). The distal extent of the TCL was visualized and the end of the scope palpated with the thumb. The blade was elevated and withdrawn from distal to proximal. The TCL was split into two flaps. The endoscope was reinserted to confirm complete release and any remnant ligament was incised. The scope was withdrawn and the proximal aspect of the carpal tunnel was grossly inspected and appeared release with the median nerve visible. The antebrachial fascia at the level of the wrist was then freed from the overlying skin and then the underlying median nerve with blunt dissection. This was transected longitudinally for about 3cm proximal to the wrist incision. The wound was then irrigated with easy flow of irrigant distally and proximally. The incision was closed with a single 4-0 Nylon suture. The wound was dressed with Xeroform, Gauze, Kerlix and Feliciano. The tourniquet was deflated with the initial dressing and held with some pressure. Blood flow returned easily to all digits with capillary refill less than 2 seconds. The patient tolerated the procedure well and was returned to the Same Day Surgery area in a stable condition suffering no known complication.
== END 2024-01-13 13:16 | disposition home or self-care (01) ==
PROVIDERS: PCP Nurse Practitioner Family; Visit Provider Student in an Organized Health Care Education/Training Program
PROC: 01N54ZZ Release Median Nerve, Percutaneous Endoscopic Approach (ICD-10-PCS; CPT 29848; principal; 2024-01-13 11:45)
DX: G56.03 Carpal tunnel syndrome, bilateral upper limbs (principal); F17.200 Nicotine dependence, unspecified, uncomplicated
CPT/HCPCS: 29848; J0690; J2004; J2250; J2405; J2704